=== PATIENT | female | born 1980 | race Caucasian/White ===

== ENCOUNTER 2016-09-15 11:19 | Emergency (ER) | payer MEDICAID ==
[~2016-09-15] VITALS: Ht 160 cm; Wt 72.5 kg
[~2016-09-15 11:19] MED LIST: ARIP5TAB9 PO; FLUO-191 PO; LISI-661 PO; ZIPR20CA2 PO
[2016-09-15] MEDS ORDERED: ARIP5TAB9 PO (12:05)
[2016-09-15] MEDS ORDERED: FLUO-191 PO (12:05)
[2016-09-15 15:29] VITALS: BP 143/82
== END 2016-09-15 15:35 | disposition home or self-care (01) ==
LOC: EMS 11:20
DX: Z76.0 Encounter for issue of repeat prescription (principal); L02.413 Cutaneous abscess of right upper limb; I10 Essential (primary) hypertension; F17.210 Nicotine dependence, cigarettes, uncomplicated; F11.10 Opioid abuse, uncomplicated; F19.10 Other psychoactive substance abuse, uncomplicated
CPT/HCPCS: 99283; 99406

== ENCOUNTER 2017-02-26 14:24 | Emergency (ER) | payer MEDICAID, OTHER ==
[~2017-02-26] VITALS: Ht 162.6 cm; Wt 75.0 kg
[2017-02-26 16:00] VITALS: BP 123/70
== END 2017-02-26 16:24 | disposition home or self-care (01) ==
LOC: EMS 14:25
DX: R51 Headache (principal); F11.10 Opioid abuse, uncomplicated; F11.90 Opioid use, unspecified, uncomplicated; F17.210 Nicotine dependence, cigarettes, uncomplicated; I10 Essential (primary) hypertension
CPT/HCPCS: 70450; 99284

== ENCOUNTER 2017-03-20 14:17 | Emergency (ER) | payer MEDICAID, OTHER ==
[~2017-03-20] VITALS: Ht 165.1 cm; Wt 71.4 kg
[2017-03-20 14:59] LABS: BASOPHILS # (AUTO) 0.02 K/uL (0.00-0.20); BASOPHILS % (AUTO) 0.3 % (0.0-2.0); EOSINOPHILS # (AUTO) 0.15 K/uL (0.00-0.70); EOSINOPHILS % (AUTO) 2.06 % (1.0-6.0); HEMATOCRIT 37.1 % (36-46); HEMOGLOBIN 12.4 g/dL (12.0-16.0); LYMPHOCYTES # (AUTO) 2.7 K/uL (1.0-4.8); LYMPHOCYTES % (AUTO) 36.7 % (22.0-44.0); MEAN CORPUSCULAR HEMOGLOBIN 29.2 pg (26.0-34.0); MEAN CORPUSCULAR HGB CONC 33.3 G/dL (31.0-37.0); MEAN CORPUSCULAR VOLUME 88 fL (80-100); MONOCYTES # (AUTO) 0.7 K/uL (0.1-1.0); MONOCYTES % (AUTO) 9.6 % (2.0-9.0); NEUTROPHILS # (AUTO) 3.8 K/uL (1.8-7.7); NEUTROPHILS % (AUTO) 51.5 % (40.0-70.0); PLATELET COUNT (AUTO) 196 K/uL (150-450); RED BLOOD CELL COUNT(AUTO) 4.23 MIL/uL (4.00-5.20); RED CELL DISTRIBUTION WIDTH 13.5 % (11.5-14.5); WHITE BLOOD COUNT (AUTO) 7.4 K/uL (4.5-11.0)
[2017-03-20 15:01] LABS: APPEARANCE,URINE CLOUDY (CLEAR); GLUCOSE, URINE (UA) NEGATIVE (NEGATIVE); KETONES,URINE NEGATIVE (NEGATIVE); LEUKOCYTE ESTERASE ,URINE SMALL (NEGATIVE); OCCULT BLOOD,URINE NEGATIVE (NEGATIVE); PROTEIN,URINE NEGATIVE (NEGATIVE)
[2017-03-20 15:10] LABS: RBC,URINE None Seen /HPF (0-2); SQUAMOUS EPITHELIAL CELL,UR Moderate /LPF (None Seen)
[2017-03-20 15:13] LABS: ANION GAP 9 mmol/L (8-16); CALCIUM, TOTAL 8.8 mg/dL (8.8-10.5); CARBON DIOXIDE 27 mmol/L (22-29); CHLORIDE 107 mmol/L (98-107); CREATININE 0.74 mg/dL (0.60-1.30); GLOMERULAR FILTR. RATE CALC > 60 mL/min (>60); POTASSIUM 4.2 mmol/L (3.5-5.1); SODIUM SERUM 143 mmol/L (136-145); UREA NITROGEN, BLOOD 8 mg/dL (7-18)
[2017-03-20 15:17] LABS: ALANINE AMINOTRANSFERASE 98 U/L (12-78); ALBUMIN 3.2 g/dL (3.4-5.0); ASPARTATE AMINOTRANSFERASE 67 U/L (15-37); BILIRUBIN,TOTAL 0.3 mg/dL (0.1-1.0); TOTAL PROTEIN, SERUM 7.9 g/dL (6.4-8.2)
[2017-03-20] MEDS ORDERED: AZITHROMYCIN 250 MG TABLET PO ONE (15:30)
[2017-03-20] MEDS ORDERED: LIDOCAINE HCL/PF 1% 2 ML VIAL IM ONE (15:30)
[2017-03-20] MEDS ORDERED: CefTRIAXone SODIUM 1 GM/VIAL IM ONE (15:30)
[2017-03-20] MEDS ORDERED: MetroNIDAZOLE 500 MG TABLET PO ONE (15:30)
[2017-03-20 15:52] VITALS: BP 111/74
[2017-03-22 02:13] LABS: GC DNA N.A. AMPLIFY Negative (Negative)
== END 2017-03-20 16:11 | disposition home or self-care (01) ==
LOC: EMS 14:20
DX: L03.113 Cellulitis of right upper limb (principal); I10 Essential (primary) hypertension; F11.90 Opioid use, unspecified, uncomplicated; F17.210 Nicotine dependence, cigarettes, uncomplicated; Z76.0 Encounter for issue of repeat prescription
CPT/HCPCS: 36415; 80053; 81001; 84703; 85025; 87086; 87491; 87591; 96372; 99284; J0696; J3490

== ENCOUNTER 2017-05-20 11:03 | Emergency (ER) | payer MEDICAID ==
[~2017-05-20] VITALS: Ht 160 cm; Wt 77.2 kg
[~2017-05-20 11:03] MED LIST changes: +ARIP5TAB8 PO; -ARIP5TAB9 PO
[2017-05-20] MEDS ORDERED: POVIDONE-IODINE 10% 15 ML SOLUTION UD TP ONE (13:00)
[2017-05-20] MEDS ORDERED: LIDOCAINE HCL 1% 10 ML VIAL INJ ONE (13:00)
[2017-05-20] MEDS ORDERED: IBUPROFEN 800 MG TABLET PO ONE (13:00)
[2017-05-20] MEDS ORDERED: CEPHALEXIN MONOHYDRATE 500 MG CAPSULE PO ONE (13:15)
[2017-05-20] MEDS ORDERED: SULFAMETHOX/TRIMETH DS 800-160 MG/TABLET PO ONE (13:15)
[2017-05-20 14:11] VITALS: BP 112/79
== END 2017-05-20 15:22 | disposition home or self-care (01) ==
LOC: EMS 11:04
DX: L02.413 Cutaneous abscess of right upper limb (principal); I10 Essential (primary) hypertension; F11.90 Opioid use, unspecified, uncomplicated; F17.210 Nicotine dependence, cigarettes, uncomplicated
CPT/HCPCS: 10060; 99284; J3490

== ENCOUNTER 2017-11-02 14:14 | Emergency (ER) | payer MEDICAID ==
[~2017-11-02] VITALS: Ht 162.6 cm; Wt 81.8 kg
[2017-11-02] MEDS ORDERED: RISP2 PO (14:23)
[2017-11-02] MEDS ORDERED: FURO20TA4 PO (14:23)
[2017-11-02 15:28] VITALS: BP 141/93
== END 2017-11-02 15:42 | disposition home or self-care (01) ==
LOC: EMS 14:14
DX: L03.114 Cellulitis of left upper limb (principal); F17.210 Nicotine dependence, cigarettes, uncomplicated; F31.9 Bipolar disorder, unspecified; F41.9 Anxiety disorder, unspecified; I10 Essential (primary) hypertension; F11.10 Opioid abuse, uncomplicated
CPT/HCPCS: 99283; 99406

== ENCOUNTER 2018-11-05 14:06 | Emergency (ER) | payer MEDICAID ==
[~2018-11-05] VITALS: Ht 157.5 cm; Wt 86.4 kg
[~2018-11-05 14:06] MED LIST changes: +FURO20TA4 PO; +RISP2 PO
[2018-11-05] MEDS ORDERED: METH10 PO (14:54)
[2018-11-05] MEDS ORDERED: DOXY100C PO (14:54)
[2018-11-05] MEDS ORDERED: IBUPROFEN 800 MG TABLET PO ONE (20:15)
[2018-11-05] MEDS ORDERED: AZITHROMYCIN 250 MG TABLET PO ONE (20:15)
[2018-11-05 20:20] VITALS: BP 108/61
== END 2018-11-05 20:20 | disposition home or self-care (01) ==
LOC: EMS 14:08
DX: J18.9 Pneumonia, unspecified organism (principal); F19.10 Other psychoactive substance abuse, uncomplicated; M54.9 Dorsalgia, unspecified; R07.89 Other chest pain; F41.9 Anxiety disorder, unspecified; F31.9 Bipolar disorder, unspecified; I10 Essential (primary) hypertension; F17.210 Nicotine dependence, cigarettes, uncomplicated
CPT/HCPCS: 93005; 99406